=== PATIENT | male | born 1955 | race Caucasian/White ===

== ENCOUNTER 2016-07-13 08:52 | Emergency (ER) | payer OTHER ==
[~2016-07-13] VITALS: Ht 177.8 cm; Wt 93.2 kg
[~2016-07-13 08:52] MED LIST: BUTA1CAP39 PO; DALF10TA PO; IBUP800T28 PO; TAMS0.4C29 PO
[2016-07-13 08:54] VITALS: BP 136/90; PULSE 112; RESP 20; O2SAT 97
[2016-07-13] MEDS ORDERED: 0.9% Sodium Chloride 1,000 ML IV ONE (09:01)
--- NOTE | 2016-07-13 09:01 | ED.REPORT ---
HPI-General Illness Date of Service Jul 13, 2016 ED Provider: Amrik Ledezma MD Patient is a 61 year old male with MS who presents to the ED complaining of diarrhea onset about 30 hours ago. Associated symptoms include subjective fever and shortness of breath. He denies hematochezia, vomiting, chest pain, or any other symptoms. He reports that he had pneumonia a few weeks ago. Nursing Notes Stated Complaint: DEHYDRATED, FLU SYMPTOMS Chief Complaint: General Complaint Nursing Notes Reviewed: Yes Allergies: Coded Allergies: No Known Allergies (Verified Allergy, Unknown, 06/11/14) Scheduled Dalfampridine (Ampyra) 10 Mg Tab.er.12h Unknown Dose PO BID Tamsulosin ER (Tamsulosin ER) 0.4 Mg Cap.er.24h 0.4 MG PO DAILY Scheduled PRN Butalbital/Acetamin/Caff 50-300-40 mg (Fioricet 50-300-40 mg) 1 Each Capsule 1 EACH PO Q4 PRN PRN HEADACHE Ibuprofen (Ibuprofen) 800 Mg Tablet 800 MG PO Q6 PRN PRN For Pain General Time Seen by MD: 09:01 Chief Complaint Diarrhea Hx Obtained From: Patient Arrived By: Walk-in Sudden in Onset?: Yes Onset Occurred: 1 day ago Symptom Duration: Since onset Past Medical History Past Medical History Multiple sclerosis history of kidney stones Past Surgical History L wrist Smoking History Light Tobacco Smoker Social History Alcohol Use: Denies alcohol use Drug Use: Denies drug use Other Social History: Homeless Ambulatory Status Wheelchair Review of Systems Full Review of Systems Constitutional: Reports: Fever Respiratory: Reports: Shortness of breath Cardiovascular: Denies: Chest pain GI: Reports: Diarrhea, Denies: Hematochezia, Vomiting Complete sys rev & neg: except as marked. Physical Exam Vital Signs Vital Signs Date Time Temp Pulse Resp B/P Pulse Ox O2 Delivery O2 Flow Rate FiO2 07/13/16 08:54 36.5 112 20 136/90 97 Room Air Initial VS: Reviewed General/Constitutional: Well-developed, Well-nourished Head / Eyes: Atraumatic, Normocephalic Respiratory: No respiratory distress Cardiovascular: Intact distal pulses Abdomen / GI: Soft, Non-tender Skin: Warm, Dry Neurologic: Alert, Oriented, Nonfocal Psychiatric: Mood/affect normal, Behavior normal, Normal thought content Interpretation & Diagnostics Lab Results Interpretation Result Diagram: 07/13/16 1028 07/13/16 1028 Test 07/13/16 10:28 07/13/16 11:10 07/13/16 11:15 White Blood Count 9.3th/mm3 (3.8-10.1) Red Blood Count 4.78mil/mm3 (4.40-5.80) Hemoglobin 14.3g/dL (13.8-17.2) Hematocrit 41.0% (41.0-50.0) Mean Corpuscular Volume 85.8fL (81-100) Mean Corpuscular Hemoglobin 29.9pg (27.0-35.0) Mean Corpuscular Hemoglobin Concent 34.9% (32.0-37.0) Red Cell Distribution Width 14.3% (12.3-15.4) Platelet Count 251bil/L (150-400) Neutrophils (%) (Auto) 66.6% (40-74) Lymphocytes (%) (Auto) 18.8% (14-46) Monocytes (%) (Auto) 11.2% (4-12) Eosinophils (%) (Auto) 2.6% (0-5) Basophils (%) (Auto) 0.6% (0-3) Sodium Level 136mEq/L (134-144) Potassium Level 3.4mEq/L (3.5-5.2) Chloride Level 105mEq/L (97-108) Carbon Dioxide Level 19mmol/L (18-29) Blood Urea Nitrogen 24mg/dL (8-27) Creatinine 0.79mg/dL (0.76-1.27) Estimat Glomerular Filtration Rate 106mL/min (>59) Glucose Level 105mg/dL (60-99) Calcium Level 8.3mg/dL (8.5-10.1) Total Bilirubin 0.5mg/dL (0.0-1.2) Aspartate Amino Transf (AST/SGOT) 23U/L (0-50) Alanine Aminotransferase (ALT/SGPT) 18U/L (0-44) Alkaline Phosphatase 64U/L (25-160) Total Protein 6.7g/dL (6.4-8.4) Albumin 4.0g/dL (3.4-5.0) Hold Rolon Top Tube Received (Received) Urine Color Yellow (YELLOW) Urine Appearance Clear (CLEAR,HAZY) Urine pH 5.5 (5.0-8.0) Urine Specific [place] 1.032 (1.003-1.035) Urine Protein Negativemg/dL (NEG,TRACE) Urine Glucose (UA) Negativemg/dL (NEGATIVE) Urine Ketones Tracemg/dL (NEGATIVE) Urine Occult Blood Negative (NEGATIVE) Urine Nitrite Negative (NEGATIVE) Urine Bilirubin Negative (NEGATIVE) Urine Urobilinogen Normalmg/dL (NORMAL) Urine Leukocyte Esterase Negative (NEGATIVE) Urine RBC 0-2/hpf (0-2) Urine WBC 6-10/hpf (0-5) Urine Epithelial Cells Occasional/hpf (NONE-MOD) Urine Crystals None seen (NONE SEEN) Urine Bacteria None/hpf (NONE-FEW) Urine Hyaline Casts None/lpf (NONE) Urine Granular Casts None seen (NONE SEEN) Urine Waxy Casts None seen (NONE SEEN) Urine Red Blood Cell Casts None seen (NONE SEEN) Urine White Blood Cell Casts None seen (NONE SEEN) Urine Mucus None seen (None Seen) Urine Trichomonas None seen (NONE SEEN) Urine Yeast None (NONE SEEN) Urinalysis Comment None Urine Culture Reflexed Indicated Re-Eval/Medical Decision Time of Eval: 12:15 Patient Status: Condition improved Re-Evaluation/Progress Note: Discussed lab results. Discussed plan for discharge, symptom management, and plan for follow up. Patient understands and agrees with plan. All questions addressed at this time. Counseled Regarding: Diagnosis, Lab results, Need for follow-up, When/why to return to ED Discharge & Departure Primary Impression: Diarrhea Additional Impression: Dehydration, mild Disposition: Home Discharge Condition All VS Reviewed: Yes Condition: Stable Patient Instructions: Acute Diarrhea (ED) Additional Instructions: I recommended Imodium as instructed on the packaging. Take repeat doses with each diarrheal stool. Keep yourself well hydrated with clear liquids and advance her diet slowly. Follow up next week if her symptoms are not improved. Referrals: Zoila Gonzalez MD (PCP) Scribe Attestation Portions of this note were transcribed by Katie Mcgovern. I, Dr. Ledezma personally performed the history, physical exam and medical decision-making; I reviewed and confirmed the accuracy of the information in the transcribed note. Signed by: Katie Mcgovern 07/13/16, 1230 copies to: Zoila Gonzalez MD, Kirk H MD Jul 13, 2016 09:01 KATIE MCGOVERN Jul 13, 2016 09:11
[2016-07-13 10:31] LABS: BASOPHILS % (AUTO) 0.6 % (0-3); EOSINOPHILS % (AUTO) 2.6 % (0-5); MONOCYTES % (AUTO) 11.2 % (4-12); Mean Corpuscular Hemoglobin 29.9 pg (27.0-35.0); Mean Corpuscular Volume 85.8 fL (81-100); NEUTROPHILS % (AUTO) 66.6 % (40-74); Platelet Count 251 bil/L (150-400)
[2016-07-13 11:34] LABS: APPEARANCE,URINE CLEAR (CLEAR,HAZY); COLOR,URINE YELLOW (YELLOW); OCCULT BLOOD,URINE NEGATIVE (NEGATIVE); PH,URINE 5.5 (5.0-8.0); UROBILINOGEN,URINE NORMAL (NORMAL)
== END 2016-07-13 12:53 | disposition home or self-care (01) ==
LOC: SED 08:52
DX: E86.0 Dehydration (principal); R50.9 Fever, unspecified; R06.02 Shortness of breath; A08.0 Rotaviral enteritis; G35 Multiple sclerosis; F17.200 Nicotine dependence, unspecified, uncomplicated; Z87.442 Personal history of urinary calculi; Z87.01 Personal history of pneumonia (recurrent); Z59.0 Homelessness
CPT/HCPCS: 80053; 81000; 85025; 87086; 87088; 87507; 96360; 99284; J7030

== ENCOUNTER 2016-08-16 13:09 | Observation (INO) | payer MEDICAID, OTHER ==
[2016-08-16] VITALS (7 sets, daily range): BP systolic 104–157; BP diastolic 64–84; PULSE 74–129; RESP 18–28; O2SAT 94–97
[~2016-08-16] VITALS: Ht 177.8 cm; Wt 94.6 kg
[2016-08-16] MEDS ORDERED: 0.9% Sodium Chloride 1,000 ML IV ONE ×2 (13:53→13:55)
[2016-08-16] MEDS ORDERED: Albuterol-Ipratropium 3 mL Inhalation Solution NEB ONE (13:55)
[2016-08-16] MEDS ORDERED: Azithromycin Inj 500 MG in Dextrose 5% w/Vial Mate 250 ML IV ONE (13:55)
[2016-08-16] MEDS ORDERED: cefTRIAXone Inj 2,000 MG in Dextrose 5% Minibag Plus 50 ML IV ONE (13:55)
--- NOTE | 2016-08-16 13:59 | DRSVH ---
PROCEDURE: X-RAY CHEST ONE VIEW, PORTABLE ([id number]) INDICATIONS: shortness of breath TECHNIQUE: One view of the chest was acquired. COMPARISON: [facility], CR, CHEST 2VW, 06/16/2014, 18:16. [facility], RG, C HEST 1VW (PORTABLE), 01/25/2005, 10:18. FINDINGS: Surgical changes and devices: None. Lungs and pleura: No pleural effusions or pneumothorax. Lungs are clear. Mediastinum: Mediastinal contours appear normal. Heart size is normal. Bones and chest wall: No suspicious bony lesions. Overlying soft tissues appear unremarkable. IMPRESSION: Source of shortness of breath is not seen. Dictated by: Hitesh Cartagena M.D. on 08/16/2016 at 13:57 Approved by: Hitesh Cartagena M.D. on 08/16/2016 at 13:57
[2016-08-16 14:09] LABS: BASOPHILS % (AUTO) 0.5 % (0-3); EOSINOPHILS % (AUTO) 4.8 % (0-5); MONOCYTES % (AUTO) 10.3 % (4-12); Mean Corpuscular Hemoglobin 30.1 pg (27.0-35.0); NEUTROPHILS % (AUTO) 68.9 % (40-74); Platelet Count 196 bil/L (150-400)
[2016-08-16 14:19] LABS: APPEARANCE,URINE CLEAR (CLEAR,HAZY); COLOR,URINE YELLOW (YELLOW); OCCULT BLOOD,URINE NEGATIVE (NEGATIVE); PH,URINE 5.5 (5.0-8.0); UROBILINOGEN,URINE NORMAL (NORMAL)
[2016-08-16 14:47] LABS: Magnesium 1.8 mg/dL (1.6-2.6)
[2016-08-16 14:48] LABS: TROPONIN T < 0.010 ug/L (0.0-0.011)
[2016-08-16] MEDS ORDERED: BUTA1CAP41 PO (14:56)
[2016-08-16] MEDS ORDERED: FLUT12AE10 INHALATION (14:56)
[2016-08-16] MEDS ORDERED: DALF10TA PO (14:56)
[2016-08-16] MEDS ORDERED: ROB500 PO (14:56)
[2016-08-16] MEDS ORDERED: NATA300V IV (15:05)
--- NOTE | 2016-08-16 15:28 | ED.REPORT ---
HPI-General Illness Date of Service Aug 16, 2016 ED Provider: Caryl Garcia MD Patient is a 61 year old male w/ a hx of MS who presents to the ED due to SOB onset a week ago. Associated symptoms include weakness, malaise, productive cough, fever, shallow breathing, headache. He denies dysuria and chest pain. Pt claims reports that he thinks he has pneumonia and his, "limbs don't do what they want him to do." He is currently homeless and lives in his truck. Nursing Notes Stated Complaint: FEVER/WEAK Chief Complaint: General Complaint Nursing Notes Reviewed: Yes Allergies: Coded Allergies: No Known Allergies (Verified Allergy, Unknown, 08/16/16) Scheduled Dalfampridine (Ampyra) 10 Mg Tablet 10 MG PO BID Natalizumab (Tysabri) 300 Mg/15 Ml Vial 115 MG IV MONTHLY Scheduled PRN Butalbital/Acetamin/Caff 50-300-40 mg (Butalbital/Acetamin/Caff 50-300-40 mg) 1 Each Capsule 1 CAPSULE PO Q4H PRN PRN migraine Fluticasone Propionate (Flovent HFA 220 mcg) 12 Gm Aer.w.adap 2 PUFFS INHALATION QID PRN PRN For Shortness of Breath Methocarbamol (Methocarbamol) 500 Mg Tablet 500 MG PO BID PRN PRN For Spasm General Time Seen by MD: 13:33 Chief Complaint Weakness Hx Obtained From: Patient Arrived By: Walk-in Sudden in Onset?: Yes Onset Occurred: 1 week ago Symptom Duration: Since onset Associated with: Reports: Cough, Fever, Headache Recent Healthcare: No recent doctor visit, No recent hospitalization Similar Sx Previous: No Past Medical History Past Medical History Multiple sclerosis, monthly injection through oncology clinic history of kidney stones Past Surgical History L wrist Smoking History Light Tobacco Smoker Social History Alcohol Use: Denies alcohol use Drug Use: Denies drug use Other Social History: Homeless Ambulatory Status Wheelchair (but now too weak to even transfer) Review of Systems Full Review of Systems Constitutional: Reports: Fever, Malaise, Weakness - generalized Respiratory: Reports: Prod cough, clear, Shortness of breath Cardiovascular: Denies: Chest pain Male: Denies Dysuria Neurologic: Reports: Headache Complete sys rev & neg: except as marked. Physical Exam Vital Signs Vital Signs Date Time Temp Pulse Resp B/P Pulse Ox O2 Delivery O2 Flow Rate FiO2 08/16/16 14:03 118 28 144/81 97 Nasal Cannula 2 08/16/16 14:03 119 24 94 Nasal Cannula 3 08/16/16 13:14 38.8 129 28 141/84 95 Room Air Initial VS: Reviewed General/Constitutional: Awake, Alert, Cooperative Wheezing / Retractions: Positive: Wheezing moderate (right base wheezing throughout ) productive cough Cardiovascular: No murmurs Heart Rate / Rhythm: Positive: Tachycardia Right Hip: Positive: Unable to bear weight Left Hip: Positive: Unable to bear weight minimal function of lower extremities significantly weak and not able to bear weight to transfer to hospital bed which is a significant abnormality Interpretation & Diagnostics Lab Results Interpretation Result Diagram: 08/16/16 1345 08/16/16 1345 Test 08/16/16 13:21 08/16/16 13:45 Urine Color Yellow (YELLOW) Urine Appearance Clear (CLEAR,HAZY) Urine pH 5.5 (5.0-8.0) Urine Specific [place] 1.030 (1.003-1.035) Urine Protein Negativemg/dL (NEG,TRACE) Urine Glucose (UA) Negativemg/dL (NEGATIVE) Urine Ketones Negativemg/dL (NEGATIVE) Urine Occult Blood Negative (NEGATIVE) Urine Nitrite Negative (NEGATIVE) Urine Bilirubin Negative (NEGATIVE) Urine Urobilinogen Normalmg/dL (NORMAL) Urine Leukocyte Esterase Negative (NEGATIVE) Urine RBC 0-2/hpf (0-2) Urine WBC 0-5/hpf (0-5) Urine Epithelial Cells Occasional/hpf (NONE-MOD) Urine Crystals None seen (NONE SEEN) Urine Bacteria None/hpf (NONE-FEW) Urine Hyaline Casts None/lpf (NONE) Urine Granular Casts None seen (NONE SEEN) Urine Waxy Casts None seen (NONE SEEN) Urine Red Blood Cell Casts None seen (NONE SEEN) Urine White Blood Cell Casts None seen (NONE SEEN) Urine Mucus Present (None Seen) Urine Trichomonas None seen (NONE SEEN) Urine Yeast None (NONE SEEN) Urinalysis Comment None Urine Culture Reflexed Not indicated White Blood Count 10.9th/mm3 (3.8-10.1) Red Blood Count 4.68mil/mm3 (4.40-5.80) Hemoglobin 14.1g/dL (13.8-17.2) Hematocrit 40.7% (41.0-50.0) Mean Corpuscular Volume 87.0fL (81-100) Mean Corpuscular Hemoglobin 30.1pg (27.0-35.0) Mean Corpuscular Hemoglobin Concent 34.6% (32.0-37.0) Red Cell Distribution Width 14.7% (12.3-15.4) Platelet Count 196bil/L (150-400) Neutrophils (%) (Auto) 68.9% (40-74) Lymphocytes (%) (Auto) 15.1% (14-46) Monocytes (%) (Auto) 10.3% (4-12) Eosinophils (%) (Auto) 4.8% (0-5) Basophils (%) (Auto) 0.5% (0-3) Sodium Level 138mEq/L (134-144) Potassium Level 3.6mEq/L (3.5-5.2) Chloride Level 100mEq/L (97-108) Carbon Dioxide Level 23mmol/L (18-29) Blood Urea Nitrogen 22mg/dL (8-27) Creatinine 0.72mg/dL (0.76-1.27) Estimat Glomerular Filtration Rate 118mL/min (>59) Glucose Level 137mg/dL (60-99) Lactic Acid Level 1.6mmol/L (0.4-2.0) Calcium Level 8.5mg/dL (8.5-10.1) Magnesium Level 1.8mg/dL (1.6-2.6) Total Bilirubin 0.6mg/dL (0.0-1.2) Aspartate Amino Transf (AST/SGOT) 16U/L (0-50) Alanine Aminotransferase (ALT/SGPT) 13U/L (0-44) Alkaline Phosphatase 64U/L (25-160) Troponin T < 0.010ug/L (0.0-0.011) Total Protein 6.6g/dL (6.4-8.4) Albumin 4.0g/dL (3.4-5.0) Procalcitonin 0.07ng/mL (0.00-0.08) ECG Interpretation Time: 13:35 Interpreted by: ED physician Normal ECG Interpretation: No acute ischemic changes Rhythm / Conduction: Tachycardia (120) X-Ray Chest Interpretation Chest Xray Interpretation: IMPRESSION: Source of shortness of breath is not seen. Dictated by: Hitesh Cartagena M.D. on 08/16/2016 at 13:57 Approved by: Hitesh Cartagena M.D. on 08/16/2016 at 13:57 View: Portable Interpretation / Wet Read by: Interpret - Radiologist Re-Eval/Medical Decision Med Decision/Clinical Course 61-year-old gentleman multiple sclerosis typically able to walk around with significant assistance and does have a wheelchair for longer distances. Presents with chills cough increasing weakness and inability to move his legs at this point. He is febrile, initial heart rate is in the 120, sinus tach range. Blood pressure is stable, initial assumption on presentation to the emergency room is sepsis with a pulmonary source. He is alert and appropriate. Antibiotics and fluids are started. Pneumonia is confirmed on clinical exam with elevated white count noted on lab work. Chest x-ray does not show significant infiltrate. No other infectious source is identified is no abdominal pain, no skin breakdown, no UTI, no evidence of meningitis or other deep tissue infection. Has responded well to nebulized treatments fluids antibiotics will be transferred to the floor. Lactic acid is not elevated blood pressure remained stable he has 2 peripheral IVs for access is not appear to need central line nor intubation and do not expect either of these in the next 12 hours Counseled Regarding: Diagnosis, Lab results, Need for follow-up, When/why to return to ED Discharge & Departure Primary Impression: Pneumonia Pneumonia type: due to unspecified organism Laterality: unspecified laterality Lung location: unspecified part of lung Qualified Code: B99.9 - Unspecified infectious disease Additional Impressions: Sepsis Sepsis type: sepsis due to unspecified organism Qualified Code: A41.9 - Sepsis, unspecified organism Multiple sclerosis Disposition: ADMITTED TO HOSPITAL Discharge Condition All VS Reviewed: Yes Condition: Stable Referrals: [facility] (PCP) Scribe Attestation Portion of this note were transcribed by Franky Milian. I, Dr. Garcia, personally performed the history, physical exam, and medical decision-making: I reviewed and confirmed the accuracy for the information in the transcribed note. Signed by: gaston Morgan, 08/16/16 1500 copies to: [facility] Caryl Garcia MD Aug 16, 2016 15:28 FRANKY MILIAN Aug 16, 2016 15:44
[2016-08-16] MEDS ORDERED: Alum-Mag Hydrox-Simeth 30 mL Suspension PO PRN (15:50)
[2016-08-16] MEDS ORDERED: Polyethylene Glycol (PEG) 17 Gm Powder PO PRN (15:50)
[2016-08-16] MEDS ORDERED: HYDROcodone-APAP 5-325 mg Tablet PO PRN (15:50)
[2016-08-16] MEDS ORDERED: Albuterol 2.5 mg/3 mL Inhalation Solution NEB PRN (15:50)
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
[2016-08-16] MEDS: 0.9% Sodium Chloride 1,000 ML IV SCH (18:14)
--- NOTE | 2016-08-16 19:07 | NUR ---
Admission pt received from ER, via [facility] at about 1645. Pt alert and oriented. denied pain. SL. Pt transfered/scooted self from [facility] to bed. Oxygen in place. pt oriented to call light and plan of care.
[2016-08-16] MEDS ORDERED: Butalbital-Acet-Caffeine Tablet PO PRN (22:35)
[2016-08-17] VITALS (9 sets, daily range): BP systolic 115–142; BP diastolic 73–90; PULSE 70–105; RESP 18–24; O2SAT 95–97
[2016-08-17] MEDS: 0.9% Sodium Chloride 1,000 ML IV SCH ×3 (03:32→21:50)
--- NOTE | 2016-08-17 05:06 | NUR ---
Resp/Pain TIP lung wheezes auscultated throughout, patient c/o harsh, productive cough with white, thick sputum, specimen sent. SpO2 mid 90's on 1.5L via NC. Patient has not been out of bed this shift, patient states, "I'm too weak, maybe later." Pt repositioning independently in bed, using call light appropriately. Pt c/o 09/30 headache, 650mg Tylenol administered, will monitor for effectiveness.
[2016-08-17] MEDS ORDERED: Fluticasone 250 mCg Inhaler INHALATION PRN (08:30)
[2016-08-17] MEDS ORDERED: Azithromycin Inj 500 MG in Dextrose 5% w/Vial Mate 250 ML IV SCH (08:30)
[2016-08-17] MEDS ORDERED: cefTRIAXone Inj 2,000 MG in Dextrose 5% Minibag Plus 50 ML IV SCH (08:30)
[2016-08-17] MEDS: DALFAMPRIDINE 10 MG PO SCH ×2 (08:30→20:30)
[2016-08-17 08:43] LABS: BASOPHILS % (AUTO) 0.6 % (0-3); MONOCYTES % (AUTO) 10.3 % (4-12); Mean Corpuscular Hemoglobin 29.6 pg (27.0-35.0); Mean Corpuscular Volume 84.5 fL (81-100); NEUTROPHILS % (AUTO) 46.6 % (40-74); Platelet Count 194 bil/L (150-400)
--- NOTE | 2016-08-17 10:59 | NUR ---
Evaluation completed. Please go to "Notes" then click on "Assessments and Notes" (bottom left corner of screen). Then select appropriate discipline tab on top of screen. Pt is to request assist to manage IV line while transferring to w/c and mobilize 3x daily in hallway for strengthening with w/c propulsion.
--- NOTE | 2016-08-17 15:34 | NUR ---
Social Work-initial assessment: Data:EMR Reviewed. Pt is a 61 y/o male who was admitted on 08/16/16 for sepsis per H&P. Pt's insurance is [employer] and PCP is [facility]. EMR reviewed. Pt's readmission score is 1. SW met with pt at bedside to discuss discharge planning, SW role explained. Pt resides in his car where he remains independent with ADLs. Pt uses a w/c at baseline.PT saw him and recommended back to car with outpt PT services. Pt asking for assistance with medications. SW explained that hospital does not have a way to pay for these for pt. Pt states an understanding. SW discussed DPOA/ advanced directive with pt, pt states he has not completed this and is not interested in any information at this time. Pt to have a friend provide transport back to his car at discharge. SW provided phone number and plan on white board in room. No anticipated discharge needs. SW will continue to follow if needs arise. Assessment:Pt who is independent at baseline. Plan:Pt to discharge back to his car when medically stable via POV. No anticipated discharge needs. SW will continue to follow if needs arise. SARAH Saleh
[2016-08-17] MEDS: levoFLOXacin 750 mg Tablet PO SCH (15:38)
--- NOTE | 2016-08-17 17:30 | NUR ---
Headache Patient complained of a headache in the AM 7/10 pain. He requested ibuprofen over tylenol. that was given at 0900. He said that it "helped to take the edge off but it was still a nagging headache. Its a 5/10 pain" He was asked if anything would help it and requested a cup of coffee. After drinking the cup of coffee the patient states that the headache has gone away.
--- NOTE | 2016-08-17 17:37 | PCM.PNMED ---
Subjective Date of Service Aug 17, 2016 Subjective Patient is a 61 year-old man with MS who came to the ED after feeling feverish, experiencing SOB and acute weakness. This is day 2. Today patient states that he is feeling stronger but still not at baseline. He is currently living in his car but says that he keeps himself clean and is compliant with his MS medications that is managed through Dr. Leggett, Neurologist. He denies shortness of breath but is coughing, denies chest pain, abdominal pain and palpitations. When I saw him, the patient had just went for a lap around the floor in his wheelchair. He said that there was "no way" he could have done that yesterday. Exam Vital Signs Vital Sign - Last Date Time Temp Pulse Resp B/P Pulse Ox O2 Delivery O2 Flow Rate FiO2 08/17/16 17:02 36.6 70 20 142/90 96 Room Air 08/17/16 13:29 1.50 Intake and Output 08/16/16 08/16/16 08/17/16 Cumulative From/Thru 15:00 23:00 07:00 08/16/16 13:14 - 08/17/16 05:01 Intake Total 2300 ml 400 ml 1799 ml 4499 ml Output Total 375 ml 1500 ml 1875 ml Balance 2300 ml 25 ml 299 ml 2624 ml Intake Oral 400 ml 800 ml 1200 ml IV Total 2300 ml 999 ml 3299 ml Output Urine Total 375 ml 1500 ml 1875 ml Emesis 0 ml 0 ml # Bowel Movements 0 0 Exam General: Alert and oriented, no acute distress HEENT: Unremarkable Neck: Supple, no lymphadenopathy, no JVD Heart: Regular rhythm, normal S1 & S2 Lungs: Mild coarse breath sounds B/L Abdomen: Soft, non-tender, bowel tones present Extremities: No pedal edema Neuro: Hand highway engineer strong and equal. Left foot plantar flexion 5/5. Right foot plantar flexion 3/5. (Per patient, baseline). IVs and Medications Medications Reviewed: Medications were reviewed in detail Lab and Diagnostics Laboratory Tests Test 08/16/16 13:21 08/16/16 19:51 Urine Color Yellow Urine Appearance Clear Urine pH 5.5 Urine Specific [place] 1.030 Urine Protein Negativemg/dL Urine Glucose (UA) Negativemg/dL Urine Ketones Negativemg/dL Urine Occult Blood Negative Urine Nitrite Negative Urine Bilirubin Negative Urine Urobilinogen Normalmg/dL Urine Leukocyte Esterase Negative Urine RBC 0-2/hpf Urine WBC 0-5/hpf Urine Epithelial Cells Occasional/hpf Urine Crystals None seen Urine Bacteria None/hpf Urine Hyaline Casts None/lpf Urine Granular Casts None seen Urine Waxy Casts None seen Urine Red Blood Cell Casts None seen Urine White Blood Cell Casts None seen Urine Mucus Present Urine Trichomonas None seen Urine Yeast None Urinalysis Comment None Urine Culture Reflexed Not indicated Hold Urine Received Result Diagram: 08/17/16 0510 08/16/16 1345 Microbiology Microbiology 08/16/16 Blood Culture - Preliminary, Resulted NO GROWTH AFTER 24 HOURS 08/16/16 MRSA Screen, Received Pending 08/16/16 Streptococcus pneumoniae Ag Screen - Final, Complete, negative 08/17/16 Legionella urine ag screen was ordered Sputum, normal fabio X-Rays, CTs and MRIs 08/16/16 X-RAY CHEST ONE VIEW, PORTABLE IMPRESSION: Source of shortness of breath is not seen. Dictated by: Hitesh Cartagena M.D. on 08/16/2016 at 13:57 Approved by: Hitesh Cartagena M.D. on 08/16/2016 at 13:57 Assessment & Plan 61-year-old homeless male with multiple sclerosis now presenting with increased weakness, shortness of breath, productive cough, fever, tachypnea and tachycardia. This is day 2 1. Community acquired pneumonia, present on admission, resolving - Patient has had pneumonia several times since 2014 and he says that he knows the symptoms - weakness, productive, and shortness of breath, fever. - oxygen as needed (does not use oxygen in his car) - received IV ceftriaxone and azithromycin initially. Now on PO levaquin - CXR did not show pneumonia - blood cultures negative at 24 hours, MRSA pending, legionella ordered, strep pneumonia negative. 2. Generalized weakness, acute on chronic, resolving - Secondary to his MS and also pneumonia - PT ordered 3. Multiple sclerosis, present on admission, chronic - Patient takes Ampyra and monthly Tysabri and on occasion, Ibuprofen VTE Prophylaxis: Sub-Q Enoxaparin VTE Mechanical Devices: Intermittant Pneumatic CD Resuscitation Status: CPR: Attempt Resuscitation Attending Statement The patient was seen and examined together with Dr. Chang on 08/17/2016 and I have added additional information to the note above. Laura Chang DO Aug 17, 2016 17:37 Jose Cortez MD Aug 18, 2016 11:11 medications. Based upon my interactions with him, I have no reason to doubt him. - Social work to discuss with patient Patient admitted under inpatient status with expected length of stay > 2 midnights for severity of present symptoms, complexities of treatment plan and risk for adverse events. VTE Prophylaxis: Sub-Q Enoxaparin VTE Mechanical Devices: Intermittant Pneumatic CD Resuscitation Status: CPR: Attempt Resuscitation Laura Chang DO Aug 17, 2016 17:37
[2016-08-18 04:55] VITALS: BP 128/84; PULSE 84; RESP 18; O2SAT 94
[2016-08-18 05:58] LABS: BASOPHILS % (AUTO) 0.9 % (0-3); EOSINOPHILS % (AUTO) 7.6 % (0-5); MONOCYTES % (AUTO) 10.1 % (4-12); Mean Corpuscular Hemoglobin 29.6 pg (27.0-35.0); Mean Corpuscular Volume 86.1 fL (81-100); NEUTROPHILS % (AUTO) 41.6 % (40-74); Platelet Count 201 bil/L (150-400)
--- NOTE | 2016-08-18 06:24 | NUR ---
NOC/Headache Pt complains of headache in am. Administered Fiorecet PRN for migraine. Denies chest pain, sob, n/v or abd discomfort. VSS and has been afebrile overnight.
[2016-08-18 07:02] VITALS: PULSE 86
[2016-08-18] MEDS: 0.9% Sodium Chloride 1,000 ML IV SCH (07:50)
[2016-08-18 08:26] VITALS: PULSE 84; RESP 18; O2SAT 94
[2016-08-18] MEDS: DALFAMPRIDINE 10 MG PO SCH (08:30)
--- NOTE | 2016-08-18 08:30 | NUR ---
Social Work-readiness for discharge: Data:EMR reviewed. Pt is on day 2 of hospitalization for sepsis per H&P. Per MD, pt may be ready to discharge later today or tomorrow. Pt resides in his car and is w/c bound at baseline. Pt has cleared by PT to return back to car with outpt Pt services. Pt is agreeable to plan. No anticipated discharge needs. Pt's friend to provide transport back to his car. No other discharge needs identified. SW will continue to follow if needs arise. Assessment:Pt who is independent at baseline. Plan:Pt to discharge home when medically stable via POV. No other discharge needs identified. SW will continue to follow if needs arise. SARAH Saleh
[2016-08-18] MEDS: levoFLOXacin 750 mg Tablet PO SCH (08:34)
[2016-08-18 09:10] VITALS: PULSE 94
[2016-08-18] MEDS ORDERED: LEVO750T9 PO (09:25)
--- NOTE | 2016-08-18 09:26 | PCM.DIMED ---
Discharge Instructions Date of Service Aug 18, 2016 Dates of Hospitalization Aug 16, 2016 at 15:41 Discharge Diagnosis Discharge Diagnosis 1. Community Acquired Pneumonia, Resolving Diet No restrictions Activity No restrictions Call your provider Fever or Chills, Shortness of breath, Bleeding, Chest pain, Vomitting, Excessive diarrhea, Weakness (unilateral) Patient Instructions Follow-up with PCP in: 1 week (Pt to call for an appointment.) Jose Cortez MD Aug 18, 2016 09:26
[2016-08-18 09:47] VITALS: BP 122/79; PULSE 65; RESP 18; O2SAT 91
--- NOTE | 2016-08-18 11:16 | PCM.DC.MED ---
Discharge Summary Date of Service Aug 18, 2016 Dates of Hospitalization Date of Hospital Admission Aug 16, 2016 at 15:41 Date of Discharge: Aug 18, 2016 Providers: Admitting Physician: Marisela Bowman MD Primary Care Physician: KIESHA Barajas Residency Attending Physician: Marisela Bowman MD Diagnosis at Time of Discharge Diagnosis at Time of Discharge 1. Community Acquired Pneumonia, Resolving Procedures XRay, CTs & MRIs 08/16/16 X-RAY CHEST ONE VIEW, PORTABLE IMPRESSION: Source of shortness of breath is not seen. Dictated by: Hitesh Cartagena M.D. on 08/16/2016 at 13:57 Approved by: Hitesh Cartagena M.D. on 08/16/2016 at 13:57 Brief History He had been feeling fine until yesterday when he began to note weakness as well as shortness of breath and productive cough with white to green sputum sputum. This morning he felt feverish and was quite a bit weaker. He was still noting shortness of breath which he says was present even at rest. He decided to come to the emergency department for evaluation. Hospital Course 61-year-old homeless male with multiple sclerosis now presenting with increased weakness, shortness of breath, productive cough, fever, tachypnea and tachycardia. This is day 2 1. Community acquired pneumonia, present on admission, resolving - Blood cultures negative thus far - Urine legionella and strep pneumoniae antigen negative - Pt was initially given IV Rocephin and Azithromycin, however this was switched to PO Levaquin - On day of discharge, WBC count is normal and pt is afebrile, and procalcitonin is essentially negative - Pt is in good/stable condition and is discharged to home - Pt to follow-up with PCP within a week, and he is to call for an appointment 2. Multiple sclerosis, present on admission, chronic - Patient takes Ampyra and monthly Tysabri, he is to continue this as an outpatient Exam Vital Signs (Last) Date Time Temp Pulse Resp B/P Pulse Ox O2 Delivery O2 Flow Rate FiO2 08/18/16 09:47 36.6 65 18 122/79 91 Room Air 08/17/16 13:29 1.50 Exam GENERAL: NAD, Pt laying comfortably in bed HEENT: AT/NC, PERRLA, EOMI, MM moist CARDIAC: RRR, No M/R/G PULM: CTAB NEURO: Alert and oriented x3; Following all commands Test 08/16/16 13:21 08/16/16 13:45 08/16/16 19:37 08/18/16 03:24 Urine Color Yellow (YELLOW) Urine Appearance Clear (CLEAR,HAZY) Urine pH 5.5 (5.0-8.0) Urine Specific [place] 1.030 (1.003-1.035) Urine Protein Negativemg/dL (NEG,TRACE) Urine Glucose (UA) Negativemg/dL (NEGATIVE) Urine Ketones Negativemg/dL (NEGATIVE) Urine Occult Blood Negative (NEGATIVE) Urine Nitrite Negative (NEGATIVE) Urine Bilirubin Negative (NEGATIVE) Urine Urobilinogen Normalmg/dL (NORMAL) Urine Leukocyte Esterase Negative (NEGATIVE) Urine RBC 0-2/hpf (0-2) Urine WBC 0-5/hpf (0-5) Urine Epithelial Cells Occasional/hpf (NONE-MOD) Urine Crystals None seen (NONE SEEN) Urine Bacteria None/hpf (NONE-FEW) Urine Hyaline Casts None/lpf (NONE) Urine Granular Casts None seen (NONE SEEN) Urine Waxy Casts None seen (NONE SEEN) Urine Red Blood Cell Casts None seen (NONE SEEN) Urine White Blood Cell Casts None seen (NONE SEEN) Urine Mucus Present (None Seen) Urine Trichomonas None seen (NONE SEEN) Urine Yeast None (NONE SEEN) Urinalysis Comment None Urine Culture Reflexed Not indicated Sodium Level 138mEq/L (134-144) Potassium Level 3.6mEq/L (3.5-5.2) Chloride Level 100mEq/L (97-108) Carbon Dioxide Level 23mmol/L (18-29) Blood Urea Nitrogen 22mg/dL (8-27) Creatinine 0.72mg/dL (0.76-1.27) Estimat Glomerular Filtration Rate 118mL/min (>59) Glucose Level 137mg/dL (60-99) Lactic Acid Level 1.6mmol/L (0.4-2.0) Calcium Level 8.5mg/dL (8.5-10.1) Magnesium Level 1.8mg/dL (1.6-2.6) Total Bilirubin 0.6mg/dL (0.0-1.2) Aspartate Amino Transf (AST/SGOT) 16U/L (0-50) Alanine Aminotransferase (ALT/SGPT) 13U/L (0-44) Alkaline Phosphatase 64U/L (25-160) Troponin T < 0.010ug/L (0.0-0.011) Total Protein 6.6g/dL (6.4-8.4) Albumin 4.0g/dL (3.4-5.0) Urine Legionella pneumophilia Ag Negative (Negative) Hold Urine Received (Received) Test 08/18/16 05:37 White Blood Count 7.4th/mm3 (3.8-10.1) Red Blood Count 4.60mil/mm3 (4.40-5.80) Hemoglobin 13.6g/dL (13.8-17.2) Hematocrit 39.6% (41.0-50.0) Mean Corpuscular Volume 86.1fL (81-100) Mean Corpuscular Hemoglobin 29.6pg (27.0-35.0) Mean Corpuscular Hemoglobin Concent 34.3% (32.0-37.0) Red Cell Distribution Width 14.4% (12.3-15.4) Platelet Count 201bil/L (150-400) Neutrophils (%) (Auto) 41.6% (40-74) Lymphocytes (%) (Auto) 39.5% (14-46) Monocytes (%) (Auto) 10.1% (4-12) Eosinophils (%) (Auto) 7.6% (0-5) Basophils (%) (Auto) 0.9% (0-3) Procalcitonin 0.07ng/mL (0.00-0.08) Microbiology Results Microbiology 08/16/16 Blood Culture - Preliminary, Resulted NO GROWTH AFTER 24 HOURS 08/16/16 MRSA Screen, Received Pending 08/16/16 Streptococcus pneumoniae Ag Screen - Final, Complete, negative 08/17/16 Legionella urine ag screen was ordered Sputum, normal fabio Discharge Medications Discharge Medications Dalfampridine (Ampyra) 10 Mg Tablet 10 MG PO BID (Reported) Levofloxacin (Levaquin) 750 Mg Tablet 750 MG PO DAILYAC Prescribed by: DAVIAN YOUSSEF MD Natalizumab (Tysabri) 300 Mg/15 Ml Vial 115 MG IV MONTHLY (Reported) As needed Butalbital/Acetamin/Caff 50-300-40 mg (Butalbital/Acetamin/Caff 50-300-40 mg) 1 Each Capsule 1 CAPSULE PO Q4H PRN PRN migraine (Reported) Fluticasone Propionate (Flovent HFA 220 mcg) 12 Gm Aer.w.adap 2 PUFFS INHALATION QID PRN PRN For Shortness of Breath (Reported) Methocarbamol (Methocarbamol) 500 Mg Tablet 500 MG PO BID PRN PRN For Spasm ( Reported) Followup Plan Disposition: Pt is discharged to home in good/stable condition. Discharge Diet: No restrictions Discharge Activity: No restrictions Follow-up with PCP in: 1 week (Pt to call for an appointment.) Time spent 20 minutes Davian Youssef MD Aug 18, 2016 11:16
--- NOTE | 2016-08-18 12:14 | NUR ---
Social Work- discharge: Data:EMR reviewed. Pt is on day 2 of hospitalization for sepsis per H&P. Per MD, pt is medically stable. Pt resides in his car and is w/c bound at baseline. Pt has cleared by PT to return back to car with outpt Pt services. Pt is agreeable to plan. No anticipated discharge needs. Pt's friend to provide transport back to his car. No discharge needs identified. All updated and agreeable to plan. Assessment:Pt who is independent at baseline. Plan:Pt to discharge back to his car today via POV. No discharge needs identified. All updated and agreeable to plan. SARAH Saleh
--- NOTE | 2016-08-18 18:05 | NUR ---
Dischrge nursing note: Patient was discharged to home at 1700 . His IVs x2 were removed intact. All of patient discharge information was reviewed with him and his questions were answered to his satisfaction. Patient was brought to the hospital lobby by nursing staff member and he wheeled himself to a nearby home for a ride.( patients wheelchair is his mode of transportation on a regular basis per patient.) Patient stated that he lives in his car.
== END 2016-08-18 17:35 | disposition home or self-care (01) ==
LOC: SED 13:09 → MPC 15:41 → INTOOBSV 15:41 → MPC 16:45
PROVIDERS: ADMIT Internal Medicine; ATTEND Internal Medicine
DX: J18.9 Pneumonia, unspecified organism (principal); G35 Multiple sclerosis; Z59.0 Homelessness; Z72.0 Tobacco use
CPT/HCPCS: 36415; 71010; 80053; 81000; 82308; 83605; 83735; 84484; 85025; 86403; 87040; 87070; 87081; 87205; 87449; 93005; 94664; 94799; 96365; 96368; 97163; 99285; J0456; J0696; J1650; J7030; J7620